=== PATIENT | female | born 1930 | race Caucasian/White ===

== ENCOUNTER 2016-09-03 22:30 | Emergency (ER) | payer MEDICARE ==
[2016-09-03 23:13] LABS: ALT (SGPT) 13 U/L (8-55); AST (SGOT) 13 U/L (5-34); Albumin 3.4 g/dL (3.4-4.8); Alkaline Phosphatase 127 U/L (40-150); Anion Gap 16 mmol/L (10-20); BUN (Urea Nitrogen) 48 mg/dL (9.8-20.1); Bilirubin, Total 0.3 mg/dL (0.2-1.2); Calc. Creatinine Clearance 0 mL/min (70-130); Calcium 9.4 mg/dL (7.8-10.44); Carbon Dioxide 33 mmol/L (23-31); Chloride 97 mmol/L (98-107); Estimated GFR-MDRD 64; Globulin 3.9 g/dL (2.4-3.5); Glucose 180 mg/dL (83-110); Potassium 3.2 mmol/L (3.5-5.1); Protein, Total 7.3 g/dL (6.0-8.3); Sodium 143 mmol/L (136-145)
[2016-09-03 23:18] LABS: Anisocytosis SLIGHT = 6-15 cells (100X) (0-5/hpf); CKMB 2.8 ng/mL (0-6.6); Hemoglobin 14.3 g/dL (12.0-16.0); Lymphocytes 4 % (21-51); MDiff Complete? YES; Mean Corpuscular HGB CONC 33.8 g/dL (32.0-36.0); Mean Corpuscular Hemoglobin 30.8 pg (27.0-31.0); Mean Corpuscular Volume 91.1 fl (81.0-99.0); Mean Platelet Volume 6.4 fL (7.4-10.4); Monocytes 6 % (0-10); Neutrophil 90 % (42-75); PLT Morphology Comment Appears Increased; Platelet Count 487 thou/uL (130-400); RBC Distribution Width 14.3 % (11.5-14.5); Red Blood Cell (RBC) Count 4.63 mill/uL (4.20-5.40); Small Platelets SLIGHT; Toxic Granulation SLIGHT; Troponin I 0.023 ng/mL (< 0.028); White Blood Cell (WBC) Count 28.4 thou/uL (4.8-10.8)
[2016-09-03] MEDS ORDERED: cefTRIAXone\\ROCEPHIN 2 GM VIAL ONE (23:26)
[2016-09-03] MEDS ORDERED: methylPREDNISolone Sod Succ/PF 125 MG/2 ML VIAL ONE (23:26)
[2016-09-03] MEDS ORDERED: Sodium Chloride 0.9% 100 ML ONE (23:28)
[2016-09-03] MEDS ORDERED: Furosemide 40 MG/4 ML VIAL ONE (23:47)
[2016-09-03 23:52] LABS: Base Excess 10.1 mEq/L (-2 - +2); Hemoglobin (Hb) 12.6 g/dL (11.7-16.1)
[2016-09-03 23:57] LABS: Blood, Urine Negative (Negative); Clarity Slightly Cloudy (Clear); Glucose, Urine (Dipstick) Negative (Negative); Leukocyte Negative (Negative); Nitrite Negative (Negative); Protein, Urine (Dipstick) 30 mg/dL (Neg-Trace); pH, Urine 5.5 (5.0-9.0)
[2016-09-04 00:02] LABS: Bilirubin Negative (Negative)
[2016-09-04 00:05] LABS: Bacteria/HPF Rare-Few HPF (None Seen); RBC/HPF 0-3 HPF (0-3); Squamous Epithelial None Seen HPF (0-3); WBC/HPF 0-3 HPF (0-3)
[2016-09-04 00:06] LABS: Hyaline Casts/LPF 0-3 HYALINE CAST LPF (0-3 Hyaline)
--- NOTE | 2016-09-04 00:13 | RAD ---
PORTABLE CHEST 09/03/16 An AP portable film at 2244 is compared with an 02/01/16 study. The heart is normal in size. The lungs are hyperexpanded as usual consistent with COPD. Diffuse inte rstitial changes are present. There is some increased opacity in the left upper lobe which is probab ly a developing infiltrate, though the patient is turned to the side making interpretation difficult . No large effusions are seen. Arteriosclerotic change is seen in the aorta. IMPRESSION: COPD with interstitial changes. Suspicion of left upper lobe infiltrate. POS: HOME
== END 2016-09-04 00:45 | disposition short-term general hospital (02) ==
LOC: BURERS 22:30
DX: J44.0 Chronic obstructive pulmonary disease with (acute) lower respiratory infection (principal); R41.82 Altered mental status, unspecified; I11.0 Hypertensive heart disease with heart failure; I50.9 Heart failure, unspecified; E03.9 Hypothyroidism, unspecified; J45.909 Unspecified asthma, uncomplicated; F17.210 Nicotine dependence, cigarettes, uncomplicated; Z79.899 Other long term (current) drug therapy
CPT/HCPCS: 36415; 51702; 71010; 80053; 81003; 81015; 82553; 82805; 83605; 83880; 84443; 84484; 85025; 87040; 87086; 93005; 94640; 94760; 96361; 96365; 96375; A4353; J0696; J1940; J2930; J7050; J7620

== ENCOUNTER 2017-02-08 19:01 | Inpatient (IN) | payer MEDICARE ==
[2017-02-08] MEDS ORDERED: Acetaminophen 500 MG TAB ONE (19:25)
[2017-02-08 20:19] LABS: #Basophils 0.1 thou/uL (0.0-0.2); #Lymphocytes 0.7 thou/uL (1.20-3.40); #Monocytes 0.8 thou/uL (0.11-0.59); #Neutrophils 6.2 thou/uL (1.40-6.50); %Basophils 1.2 % (0.0-1.0); %Lymphocytes 8.7 % (21.0-51.0); %Monocytes 10.7 % (0.0-10.0); %Neutrophils 79.4 % (42.0-75.0); Hemoglobin 13.6 g/dL (12.0-16.0); Mean Corpuscular HGB CONC 31.9 g/dL (32.0-36.0); Mean Corpuscular Hemoglobin 30.5 pg (27.0-31.0); Mean Corpuscular Volume 95.8 fl (81.0-99.0); Platelet Count 214 thou/uL (130-400); RBC Distribution Width 13.9 % (11.5-14.5); Red Blood Cell (RBC) Count 4.45 mill/uL (4.20-5.40); White Blood Cell (WBC) Count 7.8 thou/uL (4.8-10.8)
[2017-02-08 20:23] LABS: Bilirubin Small (Negative); Blood, Urine Negative (Negative); Clarity Clear (Clear); Glucose, Urine (Dipstick) Negative (Negative); Leukocyte Negative (Negative); Nitrite Negative (Negative); Protein, Urine (Dipstick) > or equal to 300 mg/dL (Neg-Trace); Urobilinogen 0.2 mg/dL (0.2-1.0)
[2017-02-08 20:31] LABS: Specific Gravity, Urine 1.024 (1.002-1.036)
[2017-02-08 20:33] LABS: ALT (SGPT) 22 U/L (8-55); AST (SGOT) 26 U/L (5-34); Albumin 3.6 g/dL (3.4-4.8); Alkaline Phosphatase 68 U/L (40-150); Anion Gap 17 mmol/L (10-20); BUN (Urea Nitrogen) 15 mg/dL (9.8-20.1); Bilirubin, Total 0.3 mg/dL (0.2-1.2); Calc. Creatinine Clearance 0 mL/min (70-130); Calcium 8.8 mg/dL (7.8-10.44); Carbon Dioxide 23 mmol/L (23-31); Chloride 101 mmol/L (98-107); Estimated GFR-MDRD 70; Globulin 2.8 g/dL (2.4-3.5); Glucose 89 mg/dL (83-110); Protein, Total 6.4 g/dL (6.0-8.3); Sodium 137 mmol/L (136-145)
[2017-02-08 20:34] LABS: Bacteria/HPF None Seen HPF (None Seen); Crystals/HPF None Seen HPF (Negative); Oval Fat Bodies/HPF None Seen HPF (None Seen); RBC/HPF 0-3 HPF (0-3); Renal Epithelial None Seen HPF (0-3); Sperm/HPF None Seen HPF (None Seen); Squamous Epithelial None Seen HPF (0-3); Transitional Epithelial NONE SEEN HPF (0-3); Trichomonas/HPF None Seen HPF (None Seen); WBC/HPF 0-3 HPF (0-3); Yeast-All Forms None Seen HPF (None Seen)
[2017-02-08 20:35] LABS: Hyaline Casts/LPF 0-3 HYALINE CAST LPF (0-3 Hyaline); Other Casts/LPF 0-3 COARSE GRAN LPF (0-3 Hyaline)
[2017-02-08 20:35] LABS: CKMB 3.4 ng/mL (0-6.6); Troponin I 0.018 ng/mL (< 0.028)
[2017-02-08] MEDS ORDERED: cefTRIAXone\\ROCEPHIN 1 GM VIAL ONE (23:28)
[2017-02-08] MEDS ORDERED: predniSONE 20 MG TAB ONE (23:28)
[2017-02-09] MEDS ORDERED: Ondansetron ODT 4 MG TAB SL PRN (00:29)
[2017-02-09] MEDS ORDERED: Ondansetron HCl/PF 4 MG/2 ML Vial IVP PRN (00:29)
[2017-02-09 01:38] VITALS: BMI 16.1
--- NOTE | 2017-02-09 07:41 | RAD ---
PORTABLE CHEST: DATE: 02/08/17. FINDINGS: An AP portable film at 1933 is compared with 09/03/16 study. COPD is present. There are a few interstitial changes throughout the lungs, some of which are chroni c. There may be a little increased density in the lung apices, so I cannot completely rule out a sup erimposed acute infiltrate component here, but the finding is indefinite. There are no effusions or large lobar consolidations. The heart size is stable. Degenerative changes are seen in each glenohumeral joint. IMPRESSION: Chronic obstructive pulmonary disease with diffuse interstitial changes, much of which is chronic. Q uestion of slight increased infiltration in the apices, but followup would be needed. POS: HOME
[2017-02-09] MEDS ORDERED: Budesonide 0.5 MG/2 ML NEB NEB SCH (08:30)
[2017-02-09] MEDS: predniSONE 20 MG TAB PO SCH (08:58)
[2017-02-09] MEDS ORDERED: THYROID PORK 60 MG PO SCH (09:00)
[2017-02-09] MEDS ORDERED: FLU VACC TS2017-18 (>65YR) 0.5 ML SYRINGE IM ONE (09:00)
[2017-02-09] MEDS ORDERED: Non-Formulary Item 1 EACH (Lisinopril/Hydrochlorothiazide [Lisinopril-Hctz 20-12.5 Mg Tab PO SCH (09:00)
[2017-02-09] MEDS ORDERED: DILTIAZEM HCL 240 MG PO SCH (09:00)
[2017-02-09] MEDS: Hydrochlorothiazide 25 MG TAB PO SCH (09:05)
[2017-02-09] MEDS: hydrALAZINE 25 MG TAB PO SCH ×3 (09:07→21:12)
[2017-02-09] MEDS: cloNIDine 0.1 MG TAB PO SCH ×3 (09:07→21:11)
[2017-02-09] MEDS: Lisinopril 20 MG TAB PO SCH (09:07)
[2017-02-09] MEDS ORDERED: cefTRIAXone\\ROCEPHIN 1 GM in Sodium Chloride 0.9% 100 ML IVPB SCH (23:59)
[2017-02-10] MEDS: Acetaminophen 325 MG TAB PO PRN ×2 (01:15→19:32)
[2017-02-10 06:53] LABS: Mean Corpuscular HGB CONC 33.8 g/dL (32.0-36.0); Mean Corpuscular Hemoglobin 31.2 pg (27.0-31.0); Mean Corpuscular Volume 92.1 fL (81.0-99.0); Red Blood Cell (RBC) Count 3.85 mill/uL (4.20-5.40)
[2017-02-10 06:54] LABS: #Monocytes 0.8 thou/uL (0.11-0.59); #Neutrophils 7.1 thou/uL (1.40-6.50); %Eosinophils 0.2 % (0.0-10.0); %Lymphocytes 11.5 % (21.0-51.0); %Monocytes 9.4 % (0.0-10.0); %Neutrophils 78.2 % (42.0-75.0); Manual Diff?? NO; Mean Platelet Volume 7.2 fL (7.4-10.4); Platelet Count 217 thou/uL (130-400); RBC Distribution Width 13.2 % (11.5-14.5)
[2017-02-10 06:55] LABS: #Basophils 0.1 thou/uL (0.0-0.2); %Basophils 0.7 % (0.0-1.0); Anion Gap 15 mmol/L (10-20); BUN (Urea Nitrogen) 21 mg/dL (9.8-20.1); Calc. Creatinine Clearance 43 mL/min (70-130); Calcium 8.6 mg/dL (7.8-10.44); Carbon Dioxide 26 mmol/L (23-31); Chloride 99 mmol/L (98-107); Estimated GFR-MDRD 81; Glucose 85 mg/dL (83-110); MDiff Complete? YES; Potassium 3.7 mmol/L (3.5-5.1); Sodium 136 mmol/L (136-145)
[2017-02-10 07:15] LABS: #Lymphocytes 1.1 thou/uL (1.20-3.40)
[2017-02-10] MEDS: hydrALAZINE 25 MG TAB PO SCH ×3 (08:23→20:11)
[2017-02-10] MEDS: Hydrochlorothiazide 25 MG TAB PO SCH (08:27)
[2017-02-10] MEDS: cloNIDine 0.1 MG TAB PO SCH ×3 (08:28→20:10)
[2017-02-10] MEDS: predniSONE 20 MG TAB PO SCH (08:28)
[2017-02-10] MEDS: Lisinopril 20 MG TAB PO SCH (08:29)
[2017-02-10] MEDS: HYDROcodone/Acetaminophen 5/325 mg Tablet PO PRN ×2 (12:14→20:50)
[2017-02-10] MEDS: Lorazepam 0.5 MG TAB PO PRN ×3 (17:30→20:50)
[2017-02-10] MEDS: Famotidine 20 MG TAB PO SCH (20:11)
[2017-02-11] MEDS: predniSONE 20 MG TAB PO SCH (08:16)
[2017-02-11] MEDS: Famotidine 20 MG TAB PO SCH ×2 (08:16→19:54)
[2017-02-11] MEDS: Hydrochlorothiazide 25 MG TAB PO SCH (08:17)
[2017-02-11] MEDS: Lisinopril 20 MG TAB PO SCH (08:17)
[2017-02-11] MEDS: hydrALAZINE 25 MG TAB PO SCH ×3 (08:18→19:53)
[2017-02-11] MEDS: cloNIDine 0.1 MG TAB PO SCH ×3 (08:19→19:53)
[2017-02-11] MEDS: Lorazepam 0.5 MG TAB PO PRN (10:35)
[2017-02-11] MEDS: risperiDONE 0.5 MG TAB PO PRN (14:39)
[2017-02-11] MEDS: HYDROcodone/Acetaminophen 5/325 mg Tablet PO PRN ×2 (16:48→23:38)
[2017-02-11] MEDS: Budesonide 0.5 MG/2 ML NEB NEB SCH (18:17)
[2017-02-11] MEDS: Acetaminophen 325 MG TAB PO PRN (19:48)
[2017-02-11] MEDS: Enoxaparin Sodium 30 MG/0.3 ML SYRINGE SC SCH (19:54)
[2017-02-11] MEDS ORDERED: diphenhydrAMINE 50 MG/ML VIAL ONE (20:35)
[2017-02-11] MEDS ORDERED: diphenhydrAMINE 50 MG/ML VIAL IVP PRN (20:43)
[2017-02-12 06:18] LABS: #Basophils 0.1 thou/uL (0.0-0.2); #Lymphocytes 1.8 thou/uL (1.20-3.40); #Monocytes 1.1 thou/uL (0.11-0.59); %Basophils 0.9 % (0.0-1.0); %Lymphocytes 17.6 % (21.0-51.0); %Monocytes 10.6 % (0.0-10.0); %Neutrophils 70.8 % (42.0-75.0); Mean Corpuscular HGB CONC 32.8 g/dL (32.0-36.0); Mean Corpuscular Volume 91.4 fl (81.0-99.0); Mean Platelet Volume 6.4 fL (7.4-10.4); Platelet Count 335 thou/uL (130-400); RBC Distribution Width 13.8 % (11.5-14.5); Red Blood Cell (RBC) Count 5.67 mill/uL (4.20-5.40); White Blood Cell (WBC) Count 9.9 thou/uL (4.8-10.8)
[2017-02-12 06:32] LABS: Anion Gap 16 mmol/L (10-20)
[2017-02-12 06:42] LABS: BUN (Urea Nitrogen) 16 mg/dL (9.8-20.1); Calc. Creatinine Clearance 42 mL/min (70-130); Calcium 10.5 mg/dL (7.8-10.44); Carbon Dioxide 30 mmol/L (23-31); Chloride 97 mmol/L (98-107); Estimated GFR-MDRD 80; Glucose 77 mg/dL (83-110); Potassium 3.9 mmol/L (3.5-5.1); Sodium 139 mmol/L (136-145)
[2017-02-12] MEDS ORDERED: diphenhydrAMINE 50 MG/ML VIAL IVP PRN (06:51)
[2017-02-12] MEDS ORDERED: Sodium Chloride 0.9% 20 ML ONE (07:57)
[2017-02-12] MEDS: Budesonide 0.5 MG/2 ML NEB NEB SCH ×2 (09:12→18:21)
[2017-02-12] MEDS: predniSONE 20 MG TAB PO SCH (09:17)
[2017-02-12] MEDS: cloNIDine 0.1 MG TAB PO SCH ×3 (09:17→20:35)
[2017-02-12] MEDS: Famotidine 20 MG TAB PO SCH ×2 (09:18→20:35)
[2017-02-12] MEDS: hydrALAZINE 25 MG TAB PO SCH ×3 (09:19→21:34)
[2017-02-12] MEDS: Hydrochlorothiazide 25 MG TAB PO SCH (09:20)
[2017-02-12] MEDS: Lisinopril 20 MG TAB PO SCH (09:21)
[2017-02-12] MEDS: risperiDONE 0.5 MG TAB PO PRN ×2 (09:21→23:07)
[2017-02-12] MEDS: HYDROcodone/Acetaminophen 5/325 mg Tablet PO PRN ×2 (09:22→20:34)
[2017-02-12] MEDS: Acetaminophen 325 MG TAB PO PRN (15:17)
[2017-02-12] MEDS ORDERED: Bisacodyl 10 MG SUPP PR PRN (16:20)
[2017-02-12] MEDS ORDERED: Milk Of Magnesia 30 ML UDCUP PO SCH (16:30)
--- NOTE | 2017-02-12 18:14 | CT ---
NONCONTRAST CT HEAD 02/12/17 HISTORY: Altered mental status, hallucinations. COMPARISON: 10/11/14. FINDINGS: Again noted are chronic small vessel ischemic changes and cerebral volume loss. There is a stable rem ote lacunar infarction in the right thalamus and the anterior limb left internal capsule. There is no evidence of an acute cortical infarction, hemorrhage, mass effect, or midline shift. Mild cerebral v olume loss is noted. Again noted is the partially peripherally calcified increased density mass in a suprasellar location just above the level of the right internal carotid artery which is again worriso me for an aneurysm. This measures 1.5 cm in maximal dimensions. Previously measured 1.3 cm. Ventricular system is normal in size, shape and position. There is a tiny air fluid level in the righ t sphenoid sinus. Mastoid air cells are clear. Calvarial structures are intact. IMPRESSION: 1. 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 2. Chronic small vessel ischemic changes and cerebral volume loss. 3. 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 4. No acute intracranial abnormality is demonstrated. 5. Minimal sinus disease with air fluid level in the right sphenoid sinus which can be seen with acute sinusitis. POS: [facility]
[2017-02-12] MEDS: Enoxaparin Sodium 30 MG/0.3 ML SYRINGE SC SCH (20:35)
[2017-02-12] MEDS ORDERED: hydrALAZINE 10 MG TAB PO SCH (21:30)
[2017-02-13] MEDS: Budesonide 0.5 MG/2 ML NEB NEB SCH ×2 (06:35→15:33)
[2017-02-13 06:46] VITALS: TEMP 98.4
[2017-02-13] MEDS: predniSONE 20 MG TAB PO SCH (08:10)
[2017-02-13] MEDS: cloNIDine 0.1 MG TAB PO SCH ×2 (08:11→14:35)
[2017-02-13] MEDS: hydrALAZINE 10 MG TAB PO SCH ×2 (08:12→14:35)
[2017-02-13] MEDS: Famotidine 20 MG TAB PO SCH (08:12)
[2017-02-13] MEDS: Hydrochlorothiazide 25 MG TAB PO SCH (08:14)
[2017-02-13] MEDS: Lisinopril 20 MG TAB PO SCH (08:15)
--- NOTE | 2017-02-13 13:57 | RAD ---
CHEST 2 VIEWS: DATE: 02/13/17. COMPARISON: Comparison is made with the 02/08/17 study. The lungs are hyperexpanded as usual. The heart size is normal. There are no congestive changes or large pleural effusions. While there are no lobar consolidations, some of the lung markings in the u pper lobes are a little more prominent than the lower. Overall, the lungs seem slightly clearer toda y than they were before. The bones are osteoporotic. There may be a slightly compression of one of the midthoracic vertebrae. IMPRESSION: Overall slight improvement since the 02/08. POS: HOME
[2017-02-13 14:37] VITALS: BP 149/79
--- NOTE | 2017-02-13 17:41 | DIS ---
DATE OF ADMISSION: 02/08/2017 DATE OF DISCHARGE: 02/13/2017 ADMISSION DIAGNOSES: 1. Community-acquired pneumonia. 2. Chronic obstructive pulmonary disease exacerbation. 3. Acute altered mental status on chronic altered mental status/dementia. 4. Hypertension. 5. Hypothyroidism. 6. Tobacco Abuse. DISCHARGE DIAGNOSES: 1. Community-acquired pneumonia, treated. 2. Chronic obstructive pulmonary disease exacerbation. 3. Vascular dementia. 4. Hypertension. 5. Hypothyroidism. 6. Tobacco abuse. 7. Physical deconditioning. ATTENDING PHYSICIAN: Dr. Corrie Deng. PROCEDURES: 1. Chest x-ray from the date of admission showing chronic obstructive pulmonary disease with diffuse interstitial changes, much of which is chronic. Question of slight increased infiltration in the apices, but followup would be needed. 2. CT of the brain on 02/12/2017 showing a partially peripherally calcified increased density mass in the suprasellar location just above medial to the right internal carotid artery, worrisome for aneurysm, now measuring 1.5 cm ( known finding). Chronic small vessel ischemic changes and cerebral volume loss. Remote lacunar infarction in right basal ganglia and anterior limb left internal capsule. No acute intracranial abnormality is demonstrated. Minimal sinus disease with air fluid level in the right sphenoid sinus, which can be seen with acute sinusitis. 3. Chest x-ray from the date of discharge showing COPD with improvement of the increased infiltration in the apices. No lobar consolidation. 4. CBC from the date of admission with white count 7.8. This increased to 9.9 on the day prior to discharge, subsequent to steroid administration. 5. Chemistry profile from the date of admission unremarkable, lactic acid 1.4, CK-MB 3.4, troponin I 0.018. 6. TSH on the day prior to discharge 12.4902. 7. Urinalysis the date of admission showing greater than or equal to 300 protein, 15 ketones, small bilirubin, 0-3 rbc, 0-3 wbc. 8. Blood culture x2 negative for growth at 48 hours. 9. Influenza A and B from the date of admission negative. 10. Respiratory culture from the date of admission was negative for abnormal growth showing normal respiratory mahogany. HISTORY AND PHYSICAL: Please see written report from the date of admission. HOSPITAL COURSE: Ms. Alfred is an 85-year-old female who presented to the emergency room with report of increased confusion, cough, and shortness of breath. Patient with a history of COPD and tobacco abuse. Her chest x-ray initially was suspicious for possible bilateral apical infiltrates. She was hypoxic at presentation, not previously on home O2. She was treated with oxygen at 2 liters per minute, given a dose of Rocephin in the emergency room and this was changed to 750 mg of Levaquin which she completed for a total of 5 days. She was placed on prednisone and neb treatments p.r.n. Her budesonide from home was continued. Her chest x-ray showed improvement. Her lung exam improved to diminished air entry with isolated rhonchus in the right apex, otherwise wheezing resolved. Her oxygenation improved to 90-93% on room air. However, she continued to desaturate to 87% with prolonged ambulation. Therefore, we have arranged for home O2 with a concentrator and portable tank through [facility] at her discharge. It is recommended at followup that the patient be tried on a long-acting anticholinergic/beta agonist combo in addition to her nebulized corticosteroid. The patient has a known smoking history. To the best of what her dementia would allow, the patient was counseled on smoking cessation during her hospitalization. The patient presented with acute on chronic altered mental status. Per family who was present in the ED and stated to the ED attending, the patient is usually oriented to herself, but not necessarily to place or time and does have some sundowning at home. This was persistent throughout her hospitalization with the only infectious source of the pneumonia suspected to cause this to be increased above baseline. A CT scan of the brain showed no acute findings. On the date of discharge, the patient's mental status has improved compared to throughout the course of her admission with her much less calm, less restless, oriented to self and situation, but not necessarily place or time. I suspect this is her chronic baseline. Family was not here during the hospitalization to confirm this. History of hypertension. The patient was continued on her home medication regimen and required no dose changes while hospitalized. The patient with a history of hypothyroidism and her TSH was notably elevated at 12.5. Therefore, her [place] thyroid was increased to 90 mg and she will need to have a TSH checked in the outpatient setting in approximately 6-8 weeks by her PCP. Physical deconditioning due to her hospital stay. It is recommended that the patient have physical therapy and occupational therapy and this has been arranged through home health, [facility] per family's choice. DISPOSITION: Discharged to home. CONDITION: Good. MEDICATIONS: 1. DuoNeb 3 mL on nebulized q.i.d. 2. ProAir HFA 2 puffs q.4 hours p.r.n. shortness of breath. 3. Cardizem-CD 240 mg p.o. daily. 4. [place] 5/325 one p.o. t.i.d. p.r.n. pain. 5. Hydralazine 50 mg p.o. t.i.d. 6. Lisinopril/HCTZ 20/12.5 one p.o. daily. 7. Clonidine 0.1 mg p.o. t.i.d. 8. Prednisone taper 20 mg, 2 p.o. daily x2 days, then 1 p.o. daily x3 days, then half p.o. daily x3 days, then discontinue. 9. [place] Thyroid 90 mg p.o. daily. 10. Budesonide per nebulizer 0.5 mg nebulized b.i.d. FOLLOWUP: With PCP, Dr. Singh in [place] in approximately 10 days. MTDD
== END 2017-02-13 16:10 | disposition home health service (06) | DRG 190 ==
LOC: EDBD 19:01 → BURERS 19:01 → BURMED 23:20
PROVIDERS: ADMIT Family Medicine; ATTEND Family Medicine
DX: J44.0 Chronic obstructive pulmonary disease with (acute) lower respiratory infection (principal); J18.9 Pneumonia, unspecified organism; F05 Delirium due to known physiological condition; J44.1 Chronic obstructive pulmonary disease with (acute) exacerbation; F01.50 Vascular dementia, unspecified severity, without behavioral disturbance, psychotic disturbance, mood disturbance, and anxiety; I10 Essential (primary) hypertension; E03.9 Hypothyroidism, unspecified; F17.210 Nicotine dependence, cigarettes, uncomplicated; J01.90 Acute sinusitis, unspecified; R44.1 Visual hallucinations; Z88.7 Allergy status to serum and vaccine; Z88.8 Allergy status to other drugs, medicaments and biological substances
CPT/HCPCS: 36415; 51701; 70450; 71010; 71020; 80048; 80053; 81003; 81015; 82553; 83605; 83880; 84443; 84484; 85025; 87040; 87070; 87205; 93005; 94640; 96365; A4216; A4353; J0696; J1200; J1650; J1956; J7506; J7620; J7626